=== PATIENT | female | born 1990 | race Two or more races ===

== ENCOUNTER → 2018-11-09 | Outpatient (CLI) | payer BC ==
--- NOTE | 2018-11-09 17:28 | RAD ---
Clinical indications: Uncertain gestational age. Evaluation for size and dates. Findings: A single intrauterine fetus is seen in breech position. heart rate is 185 beats per minute. BPD is 3.7 cm which equals 17 weeks 2 days. HC is 13.50 cm which equals 17 weeks 0 days. AC is 11.58 cm which equals 17 weeks 2 days. FL is 2.42 cm which equals 17 weeks 2 days. Average gestational age by ultrasound is 17 weeks 2 days +/- 10 days with an EDC of April 17, 2019. Estimated weight is 0 lbs and 7 oz. The anatomy is difficult to evaluate due to the early stage of gestation and decreased resolution on this study. A four-chamber heart is identified. stomach and urinary bladder are identified. kidneys are unremarkable. Cord insertion site is unremarkable. The resolution of the intracranial structures and spine is decreased. Four extremities are identified. Normal amount of amniotic fluid is evident. Cervical length is 3.6 cm. A grade 0 anterior placenta is seen. No placenta previa and no placenta abruptio is identified. The maternal ovaries are not visualized. Impression: Single IUP with gestational age of 17 weeks 2 days. heart rate is 185 bpm. Electronically signed by: George Calvert MD (11/09/2018 5:25 PM) [email or web address]
== END | disposition home or self-care (01) ==
LOC: US 15:58
PROVIDERS: ATTEND Obstetrics & Gynecology
DX: O26.842 Uterine size-date discrepancy, second trimester (principal); Z3A.17 17 weeks gestation of pregnancy
CPT/HCPCS: 76805

== ENCOUNTER → 2019-01-15 | Outpatient (CLI) | payer BC, MEDICAID ==
[2018-08-26 18:30] VITALS: BP 109/62
[2019-01-15 10:50] LABS: BASO # 0.1 x10^3/uL (0.0-0.2); BASO % 1 % (0-3); EOS # 0.1 x10^3/uL (0.0-0.7); EOS % 1 % (0-3); HEMATOCRIT 39.2 % (36.0-47.0); HEMOGLOBIN 13.6 g/dL (12.0-15.5); LYMPH # 1.4 x10^3/uL (1.0-4.8); LYMPH % 15 % (24-48); MEAN CORPUSCULAR HEMOGLOBIN 32 pg (25-35); MEAN CORPUSCULAR HGB CONC 35 g/dL (31-37); MEAN CORPUSCULAR VOLUME 92 fL (79-100); MONO # 0.6 x10^3/uL (0.0-1.1); MONO % 6 % (0-9); NEUT # 7.3 x10^3/uL (1.8-7.7); NEUT % 78 % (31-73); PLATELET COUNT 246 x10^3/uL (140-400); RED BLOOD COUNT 4.24 x10^6/uL (3.50-5.40); RED CELL DISTRIBUTION WIDTH 13.4 % (11.5-14.5); WHITE BLOOD COUNT 9.4 x10^3/uL (4.0-11.0)
== END | disposition home or self-care (01) ==
LOC: MERGE 09:17 → LAB 09:17
PROVIDERS: ATTEND Obstetrics & Gynecology
DX: O09.92 Supervision of high risk pregnancy, unspecified, second trimester (principal); Z3A.26 26 weeks gestation of pregnancy
CPT/HCPCS: 36415; 82950; 85025

== ENCOUNTER 2019-02-13 10:48 | Observation (INO) | payer MEDICAID ==
[2018-08-26 18:30] VITALS: BP 109/62
[2019-02-13] MEDS ORDERED: ONDANSETRON PF 4 MG/2 ML VIAL. IV PRN (11:00)
[2019-02-13] MEDS: IV RINGERS,LACTATED 1000ML 1,000 ML IV PRN ×2 (11:41→13:00)
[2019-02-13 13:06] LABS: BILIRUBIN,URINE NEGATIVE (NEG); CLARITY,URINE CLEAR; COLOR,URINE YELLOW; NITRITE,URINE NEGATIVE (NEG); PROTEIN,URINE 30 mg/dL (NEG-TRACE)
[2019-02-13 13:15] LABS: SQUAMOUS EPITHELIAL CELL,UR MANY /LPF
[2019-02-13 13:16] LABS: BACTERIA,URINE MANY /HPF (0-FEW); RBC,URINE 0 /HPF (0-2)
== END 2019-02-13 14:00 | disposition home or self-care (01) ==
LOC: 3 SO LND 10:48
PROVIDERS: ADMIT Obstetrics & Gynecology; ATTEND Obstetrics & Gynecology
DX: O24.419 Gestational diabetes mellitus in pregnancy, unspecified control (principal); O21.2 Late vomiting of pregnancy; Z3A.28 28 weeks gestation of pregnancy
CPT/HCPCS: 81001; 82962; 87086; 96360; 96361; G0378; G0379; J7120

== ENCOUNTER → 2019-02-18 | Outpatient (CLI) | payer MEDICAID ==
[2018-08-26 18:30] VITALS: BP 109/62
--- NOTE | 2019-02-18 17:42 | RAD ---
Study: PREG MORE THAN OR EQ TO 14 WKS Clinical Indication: Gestational diabetes. Evaluate estimated weight and SEEMA. Comparison: 11/09/2018 Technique: Multiple grayscale images, color Doppler, and M-mode images of the uterus are obtained. Findings: There is a single intrauterine gestation in cephalic presentation. The placenta is anterior in location without evidence of placenta previa. The amount of amniotic fluid appears appropriate. Amniotic fluid index is 16.7 cm. Cervical length is 4.2 cm. Biometrical data: BPD = 7.68 cm for 30 weeks 6 days. HC = 28.03 cm for 30 weeks 5 days. AC = 26.67 cm for 30 weeks 5 days. FL = 5.86 cm for 30 weeks 4 days. CI ratio = 80.6. HC/AC ratio = 1.05. FL/HC ratio = 20.9. FL/AC ratio = 22. Overall, the estimated sonographic gestational age is 30 weeks 5 days The estimated gestational age by the last menstrual period is 29 weeks 3 days. Estimated weight is 1626 grams +/- 241 g. A 4 chamber heart is identified with positive cardiac activity. The estimated heart rate is 143 beats per minute. Bilateral upper and lower extremities are identified. stomach and urinary bladder are identified. Both kidneys are seen. Impression: 1. Single live intrauterine with an estimated gestational age by sonography of 30 weeks 5 days. Estimated gestational age by last menstrual period is 29 weeks 3 days. Estimated weight is 1626 g. 2. Anterior placenta without previa. Amniotic fluid index is within normal limits at 16.7 cm. The cervix is closed and measures 4.2 cm. Cephalic presentation at this time. 3. No gross anatomic abnormality on this limited survey. Electronically signed by: ANABELL SIDHU MD (02/18/2019 5:38 PM) [facility]
== END | disposition home or self-care (01) ==
LOC: US 15:12
PROVIDERS: ATTEND Obstetrics & Gynecology
DX: O26.843 Uterine size-date discrepancy, third trimester (principal); O24.419 Gestational diabetes mellitus in pregnancy, unspecified control; Z3A.29 29 weeks gestation of pregnancy
CPT/HCPCS: 76805

== ENCOUNTER 2019-03-15 04:33 | Emergency (ER) | payer MEDICAID ==
[~2019-03-15] VITALS: Ht 162.6 cm; Wt 81.2 kg
--- NOTE | 2019-03-15 04:51 | PHYS DOC ---
Past Medical History Past Medical History: Migraines Additional Past Medical Histor: gestational diabetes Past Surgical History: Tonsillectomy Additional Information: Nonsmoker Alcohol Use: None Drug Use: None Adult General Chief Complaint Chief Complaint: DIZZY/LIGHT HEADED HPI HPI 28-year-old female presents at approximately 32 weeks with report of dizziness and generalized malaise. Patient diagnosed with gestational diabetes and was recently doubled her dose of glyburide. Patient has been taking her blood sugars and recording in her journal and noted her blood sugar dropped down to the 60s. Patient denies eating anything. Reports she feels dehydrated. Slava t reports she did drink some water prior to arrival. Denies dysuria. Denies vaginal bleeding. Reports child has been moving like normal. Review of Systems Review of Systems Constitutional: Denies fever or chills; reports generalized malaise Eyes: Denies redness or eye pain HENT: Denies nasal congestion or sore throat Respiratory: Denies cough or shortness of breath Cardiovascular: Denies chest pain or palpitations GI: Denies abdominal pain, nausea, or vomiting : Denies dysuria or hematuria Musculoskeletal: Denies back pain or joint pain Integument: Denies rash or skin lesions Neurologic: Denies headache, focal weakness or sensory changes; reports dizziness Complete systems were reviewed and found to be within normal limits, except as documented in this note. Current Medications Current Medications Current Medications Medications (Trade) Dose Ordered Sig/Karly Start Time Stop Time Status Last Admin Dose Admin Dextrose (Dextrose 50%-Water Syringe) 25 gm 1X ONCE 03/15/19 05:30 03/15/19 05:31 DC 03/15/19 05:02 25 GM Sodium Chloride 1,000 ml @ 1,000 mls/hr 1X ONCE 03/15/19 05:00 03/15/19 05:59 03/15/19 05:02 1,000 MLS/HR Allergies Allergies Allergies Coded Allergies Type Severity Reaction Last Updated Verified No Known Drug Allergies 01/15/19 No Physical Exam Physical Exam Constitutional: Well developed, well nourished, no acute distress, non-toxic appearance HENT: Normocephalic, atraumatic, oropharynx moist Eyes: PERRL, EOMI, conjunctiva normal, no discharge Neck: Normal range of motion, no tenderness, supple Cardiovascular: Heart rate normal, regular rhythm Lungs & Thorax: Bilateral breath sounds clear to auscultation, no wheezing Abdomen: Soft, no tenderness, gravid abdomen Skin: Warm, dry, no erythema, no rash Extremities: No tenderness, ROM intact, no edema Neurologic: Alert and oriented X 3, no focal deficits noted Psychologic: Affect normal, judgement normal Current Patient Data Lab Values Laboratory Tests Test 03/15/19 04:45 03/15/19 05:05 Urine Collection Type Unknown Urine Color Yellow Urine Clarity Clear Urine pH 7.0 Urine Specific [place] <=1.005 Urine Protein Negative mg/dL (NEG-TRACE) Urine Glucose (UA) Negative mg/dL (NEG) Urine Ketones (Stick) Negative mg/dL (NEG) Urine Blood Negative (NEG) Urine Nitrite Negative (NEG) Urine Bilirubin Negative (NEG) Urine Urobilinogen Dipstick 0.2 mg/dL (0.2 mg/dL) Urine Leukocyte Esterase Negative (NEG) Urine RBC 1-2 /HPF (0-2) Urine WBC 1-4 /HPF (0-4) Urine Squamous Epithelial Cells Mod /LPF Urine Bacteria Few /HPF (0-FEW) Urine Mucus Slight /LPF White Blood Count 8.7 x10^3/uL (4.0-11.0) Red Blood Count 4.63 x10^6/uL (3.50-5.40) Hemoglobin 14.8 g/dL (12.0-15.5) Hematocrit 42.7 % (36.0-47.0) Mean Corpuscular Volume 92 fL (79-100) Mean Corpuscular Hemoglobin 32 pg (25-35) Mean Corpuscular Hemoglobin Concent 35 g/dL (31-37) Red Cell Distribution Width 13.5 % (11.5-14.5) Platelet Count 240 x10^3/uL (140-400) Neutrophils (%) (Auto) 66 % (31-73) Lymphocytes (%) (Auto) 24 % (24-48) Monocytes (%) (Auto) 9 % (0-9) Eosinophils (%) (Auto) 1 % (0-3) Basophils (%) (Auto) 1 % (0-3) Neutrophils # (Auto) 5.8 x10^3/uL (1.8-7.7) Lymphocytes # (Auto) 2.1 x10^3/uL (1.0-4.8) Monocytes # (Auto) 0.8 x10^3/uL (0.0-1.1) Eosinophils # (Auto) 0.1 x10^3/uL (0.0-0.7) Basophils # (Auto) 0.0 x10^3/uL (0.0-0.2) Sodium Level 140 mmol/L (136-145) Potassium Level 3.6 mmol/L (3.5-5.1) Chloride Level 105 mmol/L (98-107) Carbon Dioxide Level 22 mmol/L (21-32) Anion Gap 13 (6-14) Blood Urea Nitrogen 5 mg/dL (7-20) L Creatinine 0.5 mg/dL (0.6-1.0) L Estimated GFR (Cockcroft-Gault) 144.9 BUN/Creatinine Ratio 10 (6-20) Glucose Level 55 mg/dL (70-99) L Calcium Level 9.4 mg/dL (8.5-10.1) Magnesium Level 1.9 mg/dL (1.8-2.4) Total Bilirubin 2.1 mg/dL (0.2-1.0) H Aspartate Amino Transferase (AST) 14 U/L (15-37) L Alanine Aminotransferase (ALT) 15 U/L (14-59) Alkaline Phosphatase 106 U/L (46-116) Total Protein 7.1 g/dL (6.4-8.2) Albumin 2.9 g/dL (3.4-5.0) L Albumin/Globulin Ratio 0.7 (1.0-1.7) L Laboratory Tests 03/15/19 05:05 Laboratory Tests 03/15/19 05:05 EKG EKG [] Radiology/Procedures Radiology/Procedures [] Course & Med Decision Making Course & Med Decision Making Pertinent Lab studies reviewed. (See chart for details) Patient presents as with history of gestational diabetes and was recently increased on her dose of glyburide. Patient noted her blood sugars to drop down to the 60s in the last 24 hours. Accu-Chek obtained and in the 40s. Dextrose provided. IV fluid hydration given. Labs obtained and posted to chart. UA without signs of infection. Patient given oral intake. Patient advised to decrease back to original dose and follow closely with OB. heart tones normal. Patient stable for discharge with outpatient follow-up with PCP/OB. Discussed findings and plan with patient and family, who acknowledge understanding and agreement. Dragon Disclaimer Dragon Disclaimer This electronic medical record was generated, in whole or in part, using a voice recognition dictation system. Departure Departure Impression: Primary Impression: Hypoglycemia Additional Impressions: Hx gestational diabetes Disposition: 01 HOME, SELF-CARE Condition: IMPROVED Referrals: CONSTANCE ROSADO MD (PCP) Patient Instructions: ABCs of , Gestational Diabetes Mellitus, Hypoglycemia (Low Blood Sugar) Additional Instructions: Decreased your glyburide (diabetes medication) back to previous doses and follow closely with your OB for further evaluation and adjustment of your medications. Problem Qualifiers Additional Impressions: Weeks of gestation: 32 weeks Qualified Codes: Z3A.32 - 32 weeks gestation of ANNAMARIE SON DO Mar 15, 2019 04:51
[2019-03-15] MEDS ORDERED: IV NORMAL SALINE 1000ML BAG 1,000 ML IV ONE (05:00)
[2019-03-15 05:01] LABS: BILIRUBIN,URINE NEGATIVE (NEG); CLARITY,URINE CLEAR; COLOR,URINE YELLOW; NITRITE,URINE NEGATIVE (NEG); PROTEIN,URINE NEGATIVE (NEG-TRACE); UROBILINOGEN,URINE 0.2 mg/dL (0.2 mg/dL)
[2019-03-15 05:12] LABS: BACTERIA,URINE FEW /HPF (0-FEW); SQUAMOUS EPITHELIAL CELL,UR MOD /LPF
[2019-03-15 05:13] LABS: BASO % 1 % (0-3); EOS # 0.1 x10^3/uL (0.0-0.7); EOS % 1 % (0-3); HEMATOCRIT 42.7 % (36.0-47.0); HEMOGLOBIN 14.8 g/dL (12.0-15.5); LYMPH # 2.1 x10^3/uL (1.0-4.8); LYMPH % 24 % (24-48); MEAN CORPUSCULAR HEMOGLOBIN 32 pg (25-35); MEAN CORPUSCULAR HGB CONC 35 g/dL (31-37); MEAN CORPUSCULAR VOLUME 92 fL (79-100); MONO # 0.8 x10^3/uL (0.0-1.1); MONO % 9 % (0-9); NEUT # 5.8 x10^3/uL (1.8-7.7); NEUT % 66 % (31-73); PLATELET COUNT 240 x10^3/uL (140-400); RED BLOOD COUNT 4.63 x10^6/uL (3.50-5.40); RED CELL DISTRIBUTION WIDTH 13.5 % (11.5-14.5); WHITE BLOOD COUNT 8.7 x10^3/uL (4.0-11.0)
[2019-03-15 05:24] VITALS: BP 114/66
[2019-03-15 05:26] LABS: ALBUMIN 2.9 g/dL (3.4-5.0); ALBUMIN/GLOBULIN RATIO 0.7 (1.0-1.7); CALCIUM 9.4 mg/dL (8.5-10.1); CREATININE 0.5 mg/dL (0.6-1.0); GFR 144.9; MAGNESIUM 1.9 mg/dL (1.8-2.4); POTASSIUM 3.6 mmol/L (3.5-5.1); TOTAL BILIRUBIN 2.1 mg/dL (0.2-1.0); TOTAL PROTEIN 7.1 g/dL (6.4-8.2)
[2019-03-15] MEDS ORDERED: DEXTROSE 50% 25 GM / 50ML DISP.SYRIN. IV ONE (05:30)
== END 2019-03-15 05:45 | disposition home or self-care (01) ==
LOC: ER 04:33
DX: O26.893 Other specified pregnancy related conditions, third trimester (principal); E16.2 Hypoglycemia, unspecified; Z86.32 Personal history of gestational diabetes; R42 Dizziness and giddiness; G43.909 Migraine, unspecified, not intractable, without status migrainosus; Z3A.32 32 weeks gestation of pregnancy
CPT/HCPCS: 36415; 80053; 81001; 82962; 83735; 85025; 96361; 96374; 99284; J7030; J7042

== ENCOUNTER 2019-03-15 11:21 | Observation (INO) | payer MEDICAID ==
[2019-03-15 05:24] VITALS: BP 114/66
[2019-03-15] MEDS ORDERED: IV RINGERS,LACTATED 1000ML 1,000 ML IV PRN (11:30)
--- NOTE | 2019-03-15 12:51 | RAD ---
Biophysical profile: Clinical indications: Gestational diabetes. Findings: A single intrauterine is present in the cephalic position. heart rate is 130. breathing movements: 2. motion: 2. tone: 2. Amniotic fluid volume: 2. Therefore, the biophysical profile score is 8 out of 8. Cervical length-not visualized. SEEMA using the 4 quadrant method is 12.4 cm. Impression: Biophysical profile score is 8 out of 8. Electronically signed by: George Calvert MD (03/15/2019 12:48 PM) [facility]
== END 2019-03-15 12:30 | disposition home or self-care (01) ==
LOC: 3 SO LND 11:21
PROVIDERS: ADMIT Obstetrics & Gynecology; ATTEND Obstetrics & Gynecology
DX: O24.419 Gestational diabetes mellitus in pregnancy, unspecified control (principal); E16.2 Hypoglycemia, unspecified; R42 Dizziness and giddiness; Z3A.32 32 weeks gestation of pregnancy
CPT/HCPCS: 76815; 99284; G0378; 59025; G0379

== ENCOUNTER 2019-03-19 10:14 | Observation (INO) | payer MEDICAID ==
[2019-03-19] MEDS ORDERED: IV RINGERS,LACTATED 1000ML 1,000 ML IV SCH (10:26)
--- NOTE | 2019-03-19 12:07 | RAD ---
EXAM: OBSTETRIC ULTRASOUND WITH BIOPHYSICAL PROFILE. HISTORY: Gestational diabetes. COMPARISON: None. FINDINGS: Sonographic evaluation of the uterus, fetus and maternal pelvis was performed with biophysical profile. There is a single fetus in vertex presentation. heart rate is 145 bpm. The placenta is anterior. There is no evidence of placenta previa. Amniotic fluid volume appears normal with amniotic fluid index 14.8 cm. Biophysical profile score: 8/8. breathin. tone: 2. movement: 2. Amniotic fluid volume: 2. The maternal adnexa are obscured by positioning currently. IMPRESSION: 1. Biophysical profile score: 8/8. 2. Single fetus in vertex presentation. heart rate 145 bpm. Electronically signed by: Jessica Silveira MD (03/19/2019 12:04 PM) [facility]
== END 2019-03-19 11:41 | disposition home or self-care (01) ==
LOC: 3 SO LND 10:14
PROVIDERS: ADMIT Obstetrics & Gynecology; ATTEND Obstetrics & Gynecology
DX: O24.414 Gestational diabetes mellitus in pregnancy, insulin controlled (principal); Z3A.33 33 weeks gestation of pregnancy
CPT/HCPCS: 76819; G0378; G0379; 59025

== ENCOUNTER 2019-03-26 11:19 | Observation (INO) | payer MEDICAID ==
[2019-03-26] MEDS ORDERED: IV RINGERS,LACTATED 1000ML 1,000 ML IV SCH (11:41)
[2019-03-26 11:52] LABS: BILIRUBIN,URINE NEGATIVE (NEG); CLARITY,URINE CLOUDY; COLOR,URINE YELLOW; NITRITE,URINE NEGATIVE (NEG); PROTEIN,URINE NEGATIVE (NEG-TRACE); UROBILINOGEN,URINE 0.2 mg/dL (0.2 mg/dL)
[2019-03-26 11:57] LABS: SQUAMOUS EPITHELIAL CELL,UR MOD /LPF
[2019-03-26 11:58] LABS: AMORPHOUS SEDIMENT,UR PRESENT /HPF; BACTERIA,URINE FEW /HPF (0-FEW); RBC,URINE RARE /HPF (0-2)
--- NOTE | 2019-03-26 12:53 | RAD ---
Examination: BIOPHYS PROFILE W/O NON STRESS History: Gestational diabetes Comparison/Correlation: None Findings: Biophysical profile score for breathing movements, motion, tone, and amniotic fluid volume are each 2/2. Anteriorly located placenta is present. Cephalic lie noted. Amniotic fluid index is 9.4 cm. heart rate is 165 bpm. Impression: Biophysical profile score of 8/8. Electronically signed by: Cesario Mehta MD (03/26/2019 12:50 PM) [facility]
== END 2019-03-26 12:59 | disposition home or self-care (01) ==
LOC: 3 SO LND 11:19
PROVIDERS: ADMIT Obstetrics & Gynecology; ATTEND Obstetrics & Gynecology
DX: Z34.83 Encounter for supervision of other normal pregnancy, third trimester (principal); Z3A.34 34 weeks gestation of pregnancy
CPT/HCPCS: 76819; 81001; G0378; G0379; 59025

== ENCOUNTER 2019-04-02 17:03 | Observation (INO) | payer MEDICAID ==
[2019-04-02] MEDS ORDERED: IV RINGERS,LACTATED 1000ML 1,000 ML IV PRN (17:15)
--- NOTE | 2019-04-03 00:22 | RAD ---
Ultrasound biophysical profile score HISTORY: Gestational diabetes. COMPARISON: Left physical profile March 26, 2019. FINDINGS: respiratory movement score 2/2. motion score 2/2. muscle tone score 2/2. Amniotic fluid volume score 2/2. Amniotic fluid index 8.6 cm. heart rate 149 bpm. Fetus in cephalic position. Anterior placenta. Cervix and ovaries not documented. IMPRESSION: biophysical profile score 8/8. Electronically signed by: William Garcia MD (04/03/2019 12:19 AM) [id number]
== END 2019-04-02 18:50 | disposition home or self-care (01) ==
LOC: 3 SO LND 17:03
PROVIDERS: ADMIT Obstetrics & Gynecology; ATTEND Obstetrics & Gynecology
DX: O24.415 Gestational diabetes mellitus in pregnancy, controlled by oral hypoglycemic drugs (principal); Z3A.35 35 weeks gestation of pregnancy
CPT/HCPCS: 76819; G0378; G0379; 59025

== ENCOUNTER 2019-04-09 16:42 | Observation (INO) | payer MEDICAID ==
[2019-04-09] MEDS ORDERED: IV RINGERS,LACTATED 1000ML 1,000 ML IV SCH (17:00)
--- NOTE | 2019-04-09 17:39 | RAD ---
Biophysical profile 04/09/2019 Clinical History: Gestational diabetes. Technique: A real-time ultrasound examination of the gravid uterus was performed over a 30 minute period of observation by the mineral technologist. The following parameters were scored at 2 point scale: respiration, tone, breathing and quantitative amniotic fluid volume. Multiple images were obtained. Findings: There is a single living IUP. The fetus is in a cephalic position. The placenta is anterior. Amniotic fluid volume is within normal limits. heart rate is 125 bpm. The SEEMA measures 9.6 cm. respiration, movement, tone and qualitative amniotic fluid volume score 2 out of 2 points for an 8 out of 8 biophysical profile. Impression: 8 out of 8 biophysical profile. Electronically signed by: Blas Camejo MD (04/09/2019 5:36 PM) [id number]
[2019-04-18] MEDS ORDERED: IBUP-1027 PO (07:46)
== END 2019-04-09 17:43 | disposition home or self-care (01) ==
LOC: 3 SO LND 16:42
PROVIDERS: ADMIT Obstetrics & Gynecology; ATTEND Obstetrics & Gynecology
DX: O24.419 Gestational diabetes mellitus in pregnancy, unspecified control (principal); Z3A.36 36 weeks gestation of pregnancy
CPT/HCPCS: 76819; G0378; G0379; 59025